=== PATIENT | female | born 1955 | race Caucasian/White ===

== ENCOUNTER 2021-02-08 10:21 | Day surgery (SDC) | payer MEDICARE, OTHER ==
[~2021-02-08] VITALS: Ht 165.1 cm; Wt 79.1 kg
[~2021-02-08 10:21] MED LIST: ANASTROZOLE5 GM PO; CLON.5 PO; LETR2.5 PO; VENLAFAXINE HCL75 MG PO; VITAMIN D33000 UNIT PO
[2021-02-08] MEDS ORDERED: GABA300 (10:52)
[2021-02-08] MEDS ORDERED: Bentyl20 MG (10:53)
--- NOTE | 2021-02-08 11:02 | NUR ---
02/08/21 1102 [address] FIRST ATTEMPT MISSED BY KATARINA IN RH. SECOND ATTEMPT SUCCESSFUL BY RN IN RIGHT WRIST. PT TOW.
== END 2021-02-08 12:20 | disposition home or self-care (01) ==
LOC: ORSCSDS 10:21
PROVIDERS: Internal Medicine Gastroenterology
PROC: 0DJD8ZZ Inspection of Lower Intestinal Tract, Via Natural or Artificial Opening Endoscopic (ICD-10-PCS; principal; 2021-02-08 11:30)
DX: R19.4 Change in bowel habit (principal); R10.31 Right lower quadrant pain; K57.30 Diverticulosis of large intestine without perforation or abscess without bleeding; Z79.899 Other long term (current) drug therapy
CPT/HCPCS: J2405; J2704; J7120

== ENCOUNTER 2022-01-21 00:48 | Emergency (ER) | payer MEDICARE, OTHER ==
[~2022-01-21] VITALS: Ht 165.1 cm; Wt 78.5 kg
[~2022-01-21 00:48] MED LIST changes: +Bentyl20 MG; +GABA300
[2022-01-21 02:42] LABS: BASOPHILS ABSOLUTE AUTO 0.15 K/mm3 (0.00-0.23); BASOPHILS PERCENT AUTO 1 % (0-2); EOSINOPHILS ABSOLUTE AUTO 0.42 K/mm3 (0.00-0.68); EOSINOPHILS PERCENT AUTO 3 % (0-6); Hematocrit 43.4 % (33.0-51.0); Hemoglobin 14.2 g/dL (11.5-16.0); IMMATURE GRAN ABSOLUTE AUTO 0.03 K/mm3 (0.00-0.10); IMMATURE GRAN PERCENT AUTO 0 % (0-1); LYMPHOCYTES PERCENT AUTO 17 % (21-46); MONOCYTES ABSOLUTE AUTO 0.75 K/mm3 (0.16-1.47); MONOCYTES PERCENT AUTO 6 % (4-13); Mean Corpuscular HGB 29.6 pg (26.0-34.0); Mean Corpuscular HGB Conc 32.7 g/dL (31.5-36.5); Mean Corpuscular Volume 90 fL (80-100); Mean Platelet Volume 9.9 fL (9.1-12.4); NEUTROPHILS ABSOLUTE AUTO 9.11 K/mm3 (1.96-9.15); NEUTROPHILS PERCENT AUTO 73 % (41-73); Platelet Count 322 K/mm3 (150-400); RDW Coefficient Variation 12.5 % (11.7-14.2); RDW Standard Deviation 41.4 fL (35.1-46.3); White Blood Cell Count 12.56 K/mm3 (4.00-11.30)
[2022-01-21 02:59] LABS: Albumin, Blood 3.9 g/dL (3.4-5.0); Bilirubin, Total 0.6 mg/dL (0.1-1.0); Calcium, Blood 9.2 mg/dL (8.5-10.1); Creatinine, Blood 0.81 mg/dL (0.40-1.00); Globulin, Blood 3.9 g/dL (2.2-4.0); Potassium, Blood 3.8 mmol/L (3.5-5.5); Total Protein, Blood 7.8 g/dL (6.4-8.2)
[2022-01-21 04:48] LABS: Source, Urine Clean Catch
[2022-01-21 04:55] LABS: Bilirubin, Urine Neg (Neg); Blood, Urine 5+ (Neg); Glucose Qualitative, Urine Neg (Neg); Ketones, Urine Neg (Neg); Leukocyte Esterase, Urine 1+ (Neg); Nitrite, Urine Neg (Neg); Protein, Urine 4+ (Neg); Urobilinogen, Urine NORM (Normal)
[2022-01-21 05:22] LABS: Appearance, Urine Hazy (Clear); Color, Urine Yellow (P-Yellow)
[2022-01-21 05:24] LABS: Bacteria Few /hpf; Red Blood Cells, Urine 50-100 /hpf (0-2); Squamous Epithelial Cells Rare /hpf (Few)
[2022-01-21] MEDS ORDERED: ONDA4ODT MM (05:40)
== END 2022-01-21 06:09 | disposition home or self-care (01) ==
LOC: ER 00:48
PROVIDERS: Emergency Medicine
DX: R10.31 Right lower quadrant pain (principal); R11.2 Nausea with vomiting, unspecified; Z87.19 Personal history of other diseases of the digestive system; Z88.6 Allergy status to analgesic agent; Z88.1 Allergy status to other antibiotic agents; Z88.5 Allergy status to narcotic agent; Z88.0 Allergy status to penicillin; Z88.2 Allergy status to sulfonamides; Z88.8 Allergy status to other drugs, medicaments and biological substances; Z79.899 Other long term (current) drug therapy
CPT/HCPCS: 36415; 80053; 81001; 83690; 84484; 85025; 93005; 93010; J2270; J2405

== ENCOUNTER → 2022-04-05 | Outpatient (CLI) | payer MEDICARE, OTHER ==
[~2022-04-05] MED LIST changes: +ONDA4ODT MM
[2022-04-05 14:28] LABS: Source, Urine Clean Catch
[2022-04-05 15:53] LABS: Appearance, Urine Cloudy (Clear); Bilirubin, Urine Neg (Neg); Blood, Urine 5+ (Neg); Color, Urine Yellow (P-Yellow); Glucose Qualitative, Urine Neg (Neg); Ketones, Urine Neg (Neg); Leukocyte Esterase, Urine 3+ (Neg); Nitrite, Urine Pos (Neg); Protein, Urine 3+ (Neg); Urobilinogen, Urine NORM (Normal)
[2022-04-05 16:05] LABS: Bacteria Many /hpf; Red Blood Cells, Urine TNTC /hpf (0-2); White Blood Cells, Urine TNTC /hpf (0-5)
[2022-04-05 16:06] LABS: Squamous Epithelial Cells Rare /hpf (Few)
== END | disposition home or self-care (01) ==
LOC: LAB 14:26 → LAB SHORT 14:26
PROVIDERS: Urology
DX: N39.0 Urinary tract infection, site not specified (principal)
CPT/HCPCS: 81001; 87077; 87086; 87147; 87186

== ENCOUNTER 2022-04-21 16:08 | Inpatient (IN) | payer MEDICARE, OTHER ==
[~2022-04-21] VITALS: Ht 165.1 cm; Wt 80.6 kg
[2022-04-21 16:37] LABS: BASOPHILS ABSOLUTE AUTO 0.16 K/mm3 (0.00-0.23); BASOPHILS PERCENT AUTO 1 % (0-2); EOSINOPHILS ABSOLUTE AUTO 0.22 K/mm3 (0.00-0.68); EOSINOPHILS PERCENT AUTO 1 % (0-6); Hematocrit 40.6 % (33.0-51.0); Hemoglobin 13.6 g/dL (11.5-16.0); IMMATURE GRAN ABSOLUTE AUTO 0.07 K/mm3 (0.00-0.10); IMMATURE GRAN PERCENT AUTO 1 % (0-1); LYMPHOCYTES ABSOLUTE AUTO 0.85 K/mm3 (0.84-5.20); LYMPHOCYTES PERCENT AUTO 6 % (21-46); MONOCYTES ABSOLUTE AUTO 0.94 K/mm3 (0.16-1.47); MONOCYTES PERCENT AUTO 6 % (4-13); Mean Corpuscular HGB 29.1 pg (26.0-34.0); Mean Corpuscular HGB Conc 33.5 g/dL (31.5-36.5); Mean Corpuscular Volume 87 fL (80-100); Mean Platelet Volume 9.9 fL (9.1-12.4); NEUTROPHILS ABSOLUTE AUTO 13.29 K/mm3 (1.96-9.15); NEUTROPHILS PERCENT AUTO 86 % (41-73); Platelet Count 320 K/mm3 (150-400); RDW Coefficient Variation 13.2 % (11.7-14.2); RDW Standard Deviation 41.7 fL (35.1-46.3); Red Blood Cell Count 4.68 M/mm3 (3.80-5.20); White Blood Cell Count 15.53 K/mm3 (4.00-11.30)
[2022-04-21 17:20] LABS: Source, Urine Clean Catch
[2022-04-21 17:22] LABS: Appearance, Urine Clear (Clear); Bilirubin, Urine Neg (Neg); Blood, Urine 3+ (Neg); Color, Urine Yellow (P-Yellow); Glucose Qualitative, Urine Neg (Neg); Ketones, Urine Neg (Neg); Leukocyte Esterase, Urine 3+ (Neg); Nitrite, Urine Neg (Neg); Protein, Urine 1+ (Neg); Urobilinogen, Urine NORM (Normal)
[2022-04-21 17:22] LABS: Albumin, Blood 3.4 g/dL (3.4-5.0); Albumin/Globulin Ratio 0.8 (0.8-1.8); Bun/Creatinine Ratio 16.2 (12.0-20.0); Calcium, Blood 9.5 mg/dL (8.5-10.1); Creatinine, Blood 0.74 mg/dL (0.40-1.00); Globulin, Blood 4.2 g/dL (2.2-4.0); Total Protein, Blood 7.6 g/dL (6.4-8.2)
[2022-04-21 17:44] LABS: Bacteria Few /hpf; Squamous Epithelial Cells Few /hpf (Few); White Blood Cells, Urine 25-50 /hpf (0-5)
[2022-04-21] MEDS ORDERED: PHENAZOPYRIDINE (19:37)
[2022-04-21] MEDS ORDERED: OXYB5 (19:38)
[2022-04-21] MEDS ORDERED: TAMSULOSIN HCL0.4 M1 PO (19:38)
[2022-04-21] MEDS ORDERED: LETROZOLE2.5 M3 PO (19:38)
--- NOTE | 2022-04-21 23:40 | NUR ---
PT ARRIVES TO ICU 12 VIA BED FROM GARMENT WORKER, SP STEMI WITH STENT TO MID LAD, PER GARMENT WORKER RN, SUZAN CLOTS TO DISTAL BRANCHES OF RCA, AGGRESTAT WAS ADMIN AND SOME EXTRACTION WAS PERFORMED, DR JOHNSON EXPECTS TO HAVE CONTINUED ST ELEVATION. DR JOHNSON ARRIVES TO BEDSIDE AND CONFIRMS. PT RESPONDS TO VERBAL HOWEVER IS UNABLE TO STATE LOCATION CORRECTLY, STATES "LIBRARY" WHEN ASKED. SINUS RHYTHM WITH ST ELEVATION IS NOTED, PRESSURES MAINTAINING, TR BAND REVIEWED WITH GARMENT WORKER STAFF AND DR JOHNSON, WILL VERY SLOWLY START REMOVING AIR FROM TR BAND IN 4 HOURS BUT LEAVE IN PLACE UNTIL AFTER 0700. SPO2 SENSOR PLACED TO RIGHT INDEX FINGER, STRONG PLETH, FINGERS ARE COOL HOWEVER PT TEMP IS NOTED AT 101.6 ON ARRIVAL, WILL MONITOR. BRISK CAP REFILL IS NOTED AND GOOD PLETH TO SPO2. PT DOES ADMIT TO CHEST PAIN, RATES AT 7/10, DOES ADMIT TO FLANK PAIN RATES AT 6/10, FREQUENT PROMPTING IS NOTED TO BE REQUIRED TO GET BOTH PAIN LOCATIONS AND SCORES. WILL MONITOR.
--- NOTE | 2022-04-22 01:39 | NUR ---
STENT CARD STENT CARD PROVIDED TO SPOUSE, IMPORTANCE OF PT CARRYING STENT CARD IN [place] EXPLAINED, UNDERSTANDING VERBALIZED.
[2022-04-22 02:15] LABS: BASOPHILS ABSOLUTE AUTO 0.16 K/mm3 (0.00-0.23); BASOPHILS PERCENT AUTO 1 % (0-2); EOSINOPHILS PERCENT AUTO 0 % (0-6); Hematocrit 38.5 % (33.0-51.0); Hemoglobin 12.8 g/dL (11.5-16.0); IMMATURE GRAN ABSOLUTE AUTO 0.18 K/mm3 (0.00-0.10); IMMATURE GRAN PERCENT AUTO 1 % (0-1); LYMPHOCYTES ABSOLUTE AUTO 0.75 K/mm3 (0.84-5.20); LYMPHOCYTES PERCENT AUTO 3 % (21-46); MONOCYTES ABSOLUTE AUTO 0.72 K/mm3 (0.16-1.47); MONOCYTES PERCENT AUTO 3 % (4-13); Mean Corpuscular HGB 28.9 pg (26.0-34.0); Mean Corpuscular HGB Conc 33.2 g/dL (31.5-36.5); Mean Corpuscular Volume 87 fL (80-100); Mean Platelet Volume 10.2 fL (9.1-12.4); NEUTROPHILS ABSOLUTE AUTO 20.79 K/mm3 (1.96-9.15); NEUTROPHILS PERCENT AUTO 92 % (41-73); Platelet Count 283 K/mm3 (150-400); RDW Coefficient Variation 13.4 % (11.7-14.2); RDW Standard Deviation 42.9 fL (35.1-46.3); Red Blood Cell Count 4.43 M/mm3 (3.80-5.20)
[2022-04-22 02:39] LABS: CHOL/HDL RATIO 5.1; Cholesterol 157 mg/dL (50-200); HDL Cholesterol 31 mg/dL (>39); LDL/HDL RATIO 3.4; Low Density Lipoprotein Chol 105 mg/dL (0-110); Triglycerides 104 mg/dL (30-160); Very Low Density Lipoprot Chol 20 mg/dL (6-32)
[2022-04-22 02:41] LABS: Albumin, Blood 2.9 g/dL (3.4-5.0); Albumin/Globulin Ratio 0.7 (0.8-1.8); Bilirubin, Total 1.4 mg/dL (0.1-1.0); Bun/Creatinine Ratio 19.3 (12.0-20.0); Calcium, Blood 8.2 mg/dL (8.5-10.1); Creatinine, Blood 0.78 mg/dL (0.40-1.00); Globulin, Blood 3.9 g/dL (2.2-4.0); Potassium, Blood 3.4 mmol/L (3.5-5.5); Total Protein, Blood 6.8 g/dL (6.4-8.2)
[2022-04-22 02:49] LABS: Anti-Xa UFH, PHA Monitoring 0.68 IU/mL; International Normalized Ratio 1.19; Prothrombin Time Results 12.4 Sec (9.7-11.5)
--- NOTE | 2022-04-22 03:52 | NUR ---
TR BAND DEFLATION 1 ML AIR REMOVED FROM TR BAND, SITE REMAINS STABLE X 5 MINUTES, 2ND ML OF AIR REMOVED. WILL CONT TO MONITOR AND SLOWLY DEFLATE.
--- NOTE | 2022-04-22 04:07 | NUR ---
TR BAND SITE REMAINS STABLE, 1 ML AIR REMOVED FROM TR BAND, WILL CONT TO MONITOR AND DEFLATE
--- NOTE | 2022-04-22 04:19 | NUR ---
TR BAND SITE REMAINS STABLE, 1 ML AIR REMOVED FROM TR BAND, WILL CONT TO MONITOR.
--- NOTE | 2022-04-22 04:29 | NUR ---
TR BAND SITE REMAINS STABLE, 1 ML AIR REMOVED FROM TR BAND, WILL CONT TO MONITOR.
--- NOTE | 2022-04-22 04:40 | NUR ---
TR BAND SITE REMAINS STABLE, 1 ML AIR REMOVED FROM TR BAND, WILL CONT TO MONITOR.
--- NOTE | 2022-04-22 04:52 | NUR ---
TR BAND SITE REMAINS STABLE, 1 ML AIR REMOVED FROM TR BAND, WILL CONT TO MONITOR.
--- NOTE | 2022-04-22 05:07 | NUR ---
TR BAND SITE REMAINS STABLE, 1 ML AIR REMOVED FROM TR BAND, WILL CONT TO MONITOR.
--- NOTE | 2022-04-22 05:17 | NUR ---
TR BAND SITE REMAINS STABLE, 1 ML AIR REMOVED FROM TR BAND, WILL CONT TO MONITOR.
--- NOTE | 2022-04-22 05:34 | NUR ---
TR BAND SITE REMAINS STABLE, 1 ML AIR REMOVED FROM TR BAND, WILL CONT TO MONITOR.
--- NOTE | 2022-04-22 05:49 | NUR ---
TR BAND SITE REMAINS STABLE, 1 ML AIR REMOVED FROM TR BAND, WILL CONT TO MONITOR
--- NOTE | 2022-04-22 06:07 | NUR ---
TR BAND SITE REMAINS STABLE, 1 ML AIR REMOVED FROM TR BAND, WILL CONT TO MONITOR.
--- NOTE | 2022-04-22 06:19 | NUR ---
TR BAND SITE REMAINS STABLE, 3 ML AIR REMOVED FROM TR BAND OVER 5 MINUTES, TR BAND DEFLATED AT THIS TIME, WILL MONITOR.
--- NOTE | 2022-04-22 06:20 | NUR ---
PT CONTINUES WITH FLANK PAIN AND INTERMITTENT CHEST PAIN, PAIN IS RATED IMPROVED TO CHEST LOW 1/10 AND HIGH 7/10 SINCE ARRIVAL FROM [employer]SULTANT, ST ELEVATION HAS IMPROVED MARKEDLY, PRESSURES ARE NOTED TO HAVE TRENDED DOWN HOWEVER ARE MAINTAINING SBP LOW 100S OF THIS TIME, MAP MAINTAINING. HEART RATE IMPROVED FROM 100-110S TO 80-90S. SATS ARE MID TO UPPER 90S WHEN AWAKE WITH OXYGEN VIA NASAL CANNULA AT 3 L/MIN, LOW 90S WITH SLEEP, SHORT PERIODS OF APNEA HAVE BEEN NOTED AND FAMILY DID REPORT THAT PT SNORES HOWEVER DENIED APNEA AT HOME. PT HAS BEEN ABLE TO VOID IN BEDPAN, URINE TEA COLORED. FLANK PAIN CONTINUES HOWEVER IS ALSO NOTED IMPROVED TO "DOING ALL RIGHT" AT THIS TIME.
--- NOTE | 2022-04-22 15:36 | NUR ---
PT TAKEN TO [facility]AGE AND HOUR INVESTIGATOR FOR NEPHROSTOMY TUBE BY DR. CASTAÑEDA, NO SIGN OF DISTRESS PT LEAVES THE UNIT.
[2022-04-22 16:11] LABS: SARS-Cov-2 (COVID-19) PCR, MMC NEGATIVE (NEGATIVE)
--- NOTE | 2022-04-22 18:04 | NUR ---
SUMMARY PT A/O. C/O CP AT TIMES. THIS AM PT HAD 9/10 SHARP MID STERNAL CP. EKG DONE. DR. VALLEJO INFORMED AND MORPHINE ORDERED. DR. VALLEJO SAYS THIS IS TO BE EXPECTED DUE TO CLOTS. PT IS ON HEPARIN GTT. DR. CASTAÑEDA WAS CONSULTED FOR NEPHROSTOMY TUBE. PT WENT THIS AFTERNOON AND RETURNED AT 1715 WITH NEPHROSTOMY TUBE TO R FLANK. DRAINING SMALL AMT OF SEROSANGUINOUS FLUID. PT HAS BEEN NAUSEATED MOST OF THE DAY. GAVE PHENERGAN AFTER RETURN FROM PROCEDURE. PT TRYING TO EAT SM AMT OF FOOD T/O THE DAY. R RADIAL ACCESS SITE FROM HUMAN SERVICE SPECIALIST PROCEDURE LAST NIGHT IS STABLE. CLEAR OCCLUSIVE DRESSING IN PLACE. NO SIGN OF DISTRESS. FAMILY AT BEDSIDE.
--- NOTE | 2022-04-22 19:15 | NUR ---
ASSUMED CARE OF PT, BEDSIDE REPORT RECEIVED. PT IS RESTING QUIETLY WITH FAMILY AT BEDSIDE, RESPONDS TO VERBAL STIMULI, DOES OPEN EYES AND PROVIDE SHORT ANSWERS TO QUESTIONS AFTER MULTIPLE PROMPTS. DENIES FLANK/BACK PAIN, ADMITS TO "A LITTLE" CHEST PAIN HOWEVER DOES NOT PROVIDE PAIN SCALE, IS ABLE TO STATE THAT SHE IS IN THE HOSPITAL IN [place] AND THAT SHE CAME TO THE EMERGENCY ROOM FOR KIDNEY ISSUES HOWEVER STATES THAT SHE CAN'T ANSWER REGARDING EVENTS AFTER ADMISSION. SHE VERBALIZES UNDERSTANDING WHEN TIMELINE OF ADMIT IS EXPLAINED TO HER. SHE STATES THAT SHE JUST FEELS TIRED AND WOULD LIKE TO SLEEP. SINUS TACH IS NOTED ON MONITOR WITH RATES LOW 110S, ST ELEVATION CONTINUES TO BE IMPROVED, PRESSURES MAINTAINING, SKIN PWD, BRISK CAP REFILL, RIGHT RADIAL ACCESS SITE WITH CLEAR DRESSING IN PLACE IS WNL, NO BLEEDING, BRUISING, OR SWELLING IS NOTED, SITE IS SOFT. LUNGS REMAIN CLEAR WITH DIM BASES BILAT, SATS ARE 100% WITH OXYGEN VIA NASAL CANNULA AT 3 L/MIN, TITRATED DOWN TO 2 L/MIN DURING ASSESSMENT, WILL CONT TO TITRATE DOWN TOLERATED, PT DENIES DYSPNEA/SOB. ACTIVE BOWEL TONES PRESENT, PT DENIES CURRENT NAUSEA, ABD SOFT, NO GRIMACING WITH PALPATION. RIGHT NEPHROSTOMY TUBE IS NOW NOTED, DRESSING TO RIGHT FLANK IS CDI, URINE IN COLLECTION BAG IS RED/ORANGE, WILL CONT TO MONITOR. PLAN OF CARE IS DISCUSSED WITH FAMILY AT BEDSIDE.
--- NOTE | 2022-04-23 05:34 | NUR ---
PT RESTS QUIETLY THROUGHOUT SHIFT, SHE STATES THAT SHE IS FEELING BETTER ALTHOUGH SHE CONTINUES TO REPORT THAT SHE IS SLEEPY AND WOULD LIKE TO REST. SHE HAS DENIED NAUSEA, FLANK PAIN, DYSPNEA/SOB, AND INCREASES IN CHEST PAIN THROUGHOUT NOC. SHE DID REPORT "A LITTLE" CHEST PAIN EARLY IN THE SHIFT HOWEVER SINCE THEN SHE HAS DENIED CHEST PAIN OR PRESSURE. OXYGEN IS AT 1 L/MIN VIA NASAL CANNULA SHE WAS NOTED TO DECREASE SATS TO 88-90% WITH SLEEP, SHE IS ALSO NOTED TO HAVE KIM BOB RESPIRATORY PATTERN WITH SLEEP AND APNEIC PERIODS OF LESS THAN 10 SECONDS DURATION. SHE CONTINUES TO BE ORIENTED TO LOCATION AND CIRCUMSTANCE, IS ABLE TO STATE THAT IT IS MARCH 2022 BUT NOT EXACT DATE THROUGHOUT NOC. LUNGS HAVE REMAINED CLEAR WITH DIM BASES BILAT. CONTINUES IN SINUS RHYTHM, PRESSURES MAINTAINED THROUGHOUT NOC, PULSES REMAIN FULL AND SKIN REMAINS PWD WITH BRISK CAP REFILL. RIGHT NEPHROSTOMY HAS DRAINED 400 ML URINE, COLOR IS NOTED TO HAVE LIGHTENED FROM RED-ORANGE TO ORANGE OF THIS TIME. WILL CONT TO MONITOR AND REPORT OFF TO NEXT SHIFT.
--- NOTE | 2022-04-23 07:00 | NUR ---
ASSUME CARE: I have assumed care of this patient.
--- NOTE | 2022-04-23 07:52 | NUR ---
CHEST PAIN: pt complaining of 7/10 chest pain. she was given one SL nitro, ekg ordered, and Dr Suresh called. RN instructed to give 1mg of morphine.
[2022-04-23 08:16] LABS: BASOPHILS ABSOLUTE AUTO 0.07 K/mm3 (0.00-0.23); BASOPHILS PERCENT AUTO 0 % (0-2); EOSINOPHILS PERCENT AUTO 1 % (0-6); Hematocrit 31.4 % (33.0-51.0); IMMATURE GRAN ABSOLUTE AUTO 0.81 K/mm3 (0.00-0.10); IMMATURE GRAN PERCENT AUTO 4 % (0-1); LYMPHOCYTES PERCENT AUTO 9 % (21-46); MONOCYTES ABSOLUTE AUTO 1.23 K/mm3 (0.16-1.47); MONOCYTES PERCENT AUTO 6 % (4-13); Mean Corpuscular HGB 28.9 pg (26.0-34.0); Mean Corpuscular HGB Conc 31.8 g/dL (31.5-36.5); Mean Corpuscular Volume 91 fL (80-100); Mean Platelet Volume 10.5 fL (9.1-12.4); NEUTROPHILS ABSOLUTE AUTO 17.03 K/mm3 (1.96-9.15); NEUTROPHILS PERCENT AUTO 81 % (41-73); Platelet Count 191 K/mm3 (150-400); RDW Coefficient Variation 13.9 % (11.7-14.2); RDW Standard Deviation 46.7 fL (35.1-46.3); Red Blood Cell Count 3.46 M/mm3 (3.80-5.20); White Blood Cell Count 21.04 K/mm3 (4.00-11.30)
[2022-04-23 08:31] LABS: Albumin, Blood 2.1 g/dL (3.4-5.0); Anion Gap 8 mmol/L (6-16); Blood Urea Nitrogen 24 mg/dL (8-24); CO2, Blood 22 mmol/L (21-32); Calcium, Blood 7.5 mg/dL (8.5-10.1); Chloride, Blood 108 mmol/L (98-108); Glomerular Filtration Rate 62 (60-); Glucose, Blood 117 mg/dL (70-99); Phosphorus, Blood 2.5 mg/dL (2.5-4.9); Sodium, Blood 138 mmol/L (136-145)
--- NOTE | 2022-04-23 09:33 | NUR ---
UPDATE: Dr Haynes called to clarify transfer plan. Continue to plan to transfer for urology management.
--- NOTE | 2022-04-23 09:54 | NUR ---
PROVIDER UPDATE: Pt still complaining of 7/10 chest pain that worsens with inspiration. Discussed with Dr Suresh while she was on unit. Verbal order for for Toradol and Morphine. See new orders.
--- NOTE | 2022-04-23 09:57 | NUR ---
[facility]: update given to [facility] transfer [facility]
--- NOTE | 2022-04-23 10:54 | NUR ---
PROVIDER UPDATE: Dr Suresh called and notified of pt's hypotension. Telephone order for levophed and critical care consult. Dr Mariscal notified. PICC line requested from charge hand.
--- NOTE | 2022-04-23 17:16 | NUR ---
SHIFT SUMMARY/TRANSFER: pt began complaining of 7/10 chest pain that worsened with inspiration this morning. She was given SL NTG and morphine with minimal effect. BP began trending downward. PICC line started in LUE. 1L bolus given and norepi started. Bedside ECHO performed with Dr Marrero at [facility]. Pt was then taken to [facility] today around noon where Impella was placed and pt was transferred to [facility] via helicopter. Report given to LULI Davalos. Right urosotomy tube draining maría colored urine.
== END 2022-04-23 17:15 | disposition short-term general hospital (02) | DRG 215 ==
LOC: ER 16:08 → ICUW 22:10 → ICUE 04-23 13:40
PROVIDERS: Family Medicine; Internal Medicine; Internal Medicine Interventional Cardiology; Physician Assistant; Radiology Diagnostic Radiology; ADMIT Internal Medicine
PROC: 027034Z Dilation of Coronary Artery, One Artery with Drug-eluting Intraluminal Device, Percutaneous Approach (ICD-10-PCS; principal; 2022-04-21)
PROC: 0T9030Z Drainage of Right Kidney with Drainage Device, Percutaneous Approach (ICD-10-PCS; 2022-04-22)
PROC: BT111ZZ Fluoroscopy of Right Kidney using Low Osmolar Contrast (ICD-10-PCS; 2022-04-22)
PROC: BT41ZZZ Ultrasonography of Right Kidney (ICD-10-PCS; 2022-04-22)
PROC: 3E03329 Introduction of Other Anti-infective into Peripheral Vein, Percutaneous Approach (ICD-10-PCS; 2022-04-22)
PROC: 3E033XZ Introduction of Vasopressor into Peripheral Vein, Percutaneous Approach (ICD-10-PCS; 2022-04-22)
PROC: 05HY33Z Insertion of Infusion Device into Upper Vein, Percutaneous Approach (ICD-10-PCS; 2022-04-22)
PROC: 02HA3RZ Insertion of Short-term External Heart Assist System into Heart, Percutaneous Approach (ICD-10-PCS; 2022-04-23)
PROC: 5A0221D Assistance with Cardiac Output using Impeller Pump, Continuous (ICD-10-PCS; 2022-04-23)
PROC: 4A023N8 Measurement of Cardiac Sampling and Pressure, Bilateral, Percutaneous Approach (ICD-10-PCS; 2022-04-23)
PROC: B2111ZZ Fluoroscopy of Multiple Coronary Arteries using Low Osmolar Contrast (ICD-10-PCS; 2022-04-23)
PROC: B41C1ZZ Fluoroscopy of Pelvic Arteries using Low Osmolar Contrast (ICD-10-PCS; 2022-04-23)
DX: I21.19 ST elevation (STEMI) myocardial infarction involving other coronary artery of inferior wall (principal); A41.01 Sepsis due to Methicillin susceptible Staphylococcus aureus; R57.0 Cardiogenic shock; R65.20 Severe sepsis without septic shock; N13.6 Pyonephrosis; E87.2 Acidosis; N12 Tubulo-interstitial nephritis, not specified as acute or chronic; N13.8 Other obstructive and reflux uropathy; Z20.822 Contact with and (suspected) exposure to COVID-19; F32.A Depression, unspecified; F41.9 Anxiety disorder, unspecified; I27.20 Pulmonary hypertension, unspecified; I07.1 Rheumatic tricuspid insufficiency; I50.82 Biventricular heart failure; Z96.0 Presence of urogenital implants; N20.0 Calculus of kidney; N13.9 Obstructive and reflux uropathy, unspecified; K58.9 Irritable bowel syndrome, unspecified; I25.10 Atherosclerotic heart disease of native coronary artery without angina pectoris; E87.6 Hypokalemia; I24.9 Acute ischemic heart disease, unspecified; I48.91 Unspecified atrial fibrillation; Z88.8 Allergy status to other drugs, medicaments and biological substances; Z88.2 Allergy status to sulfonamides; Z88.5 Allergy status to narcotic agent; Z88.1 Allergy status to other antibiotic agents; Z88.0 Allergy status to penicillin; Z87.442 Personal history of urinary calculi; Z90.49 Acquired absence of other specified parts of digestive tract; Z98.890 Other specified postprocedural states; Z95.5 Presence of coronary angioplasty implant and graft; Z79.899 Other long term (current) drug therapy
CPT/HCPCS: 33990; 36415; 36569; 50432; 74176; 76937; 80053; 80061; 80069; 81001; 83036; 83605; 84443; 84484; 85025; 85347; 85520; 85610; 85730; 87040; 87077; 87086; 87147; 87186; 92920; 92921; 93005; 93010; 93308; 93454; 93460; 96374; 96375; 99152; 99153; 99285-25; A9270; C1725; C1729; C1751; C1757; C1760; C1769; C1874; C1887; C1894; C8929; C9600; C9606; G0378; J0461; J0696; J1644; J1940; J1956; J2250; J2270; J2310; J2405; J2550; J3010; J3246; J7030; J7040; J7050; J7060; J7120; Q9957; Q9967; U0004

== ENCOUNTER → 2022-08-06 | Outpatient (CLI) | payer MEDICARE, OTHER ==
[~2022-08-06] MED LIST changes: +LETROZOLE2.5 M3 PO; +OXYB5; +PHENAZOPYRIDINE; +TAMSULOSIN HCL0.4 M1 PO
== END | disposition home or self-care (01) ==
LOC: LAB SHORT 10:00 → LAB 10:00 → LAB FUT 04-17 09:50 → EDSTATUS 04-17 09:50
DX: N20.0 Calculus of kidney (principal)
CPT/HCPCS: 81050

== ENCOUNTER → 2023-12-04 | Outpatient (CLI) | payer MEDICARE, OTHER ==
[2023-12-10 16:16] LABS: CALCIUM, URINE - PER 24H 30 mg/d (100-250); CHLORIDE, URINE - PER 24H 42 mmol/d (140-250); CHLORIDE, URINE - PER VOLUME 28 mmol/L; CITRIC ACID, URINE - PER 24H 240 mg/d (320-1240); CITRIC ACID,URINE - PER VOLUME 160 mg/L; CREATININE, URINE - PER 24H 885 mg/d (500-1400); CREATININE, URINE - PER VOLUME 59 mg/dL; HOURS COLLECTED 24 hr; MAGNESIUM, URINE - PER VOLUME 2.4 mg/dL; MAGNESIUM, URINE PER 24H 36 mg/d (12-199); OXALATE, URINE - PER 24H 18 mg/d (13-40); OXALATE, URINE - PER VOLUME 12 mg/L; PH, URINE 6.23 (5.00-7.50); PHOSPHORUS, URINE - PER 24H 480 mg/d (400-1300); PHOSPHORUS, URINE - PER VOLUME 32 mg/dL; POTASSIUM, URINE - PER 24H 57 mmol/d (25-125); POTASSIUM, URINE - PER VOLUME 38 mmol/L; SODIUM, URINE - PER 24H 45 mmol/d (51-286); SODIUM, URINE - PER VOLUME 30 mmol/L; SULFATE, URINE - PER 24H 9 mmol/d (6-30); SULFATE, URINE - PER VOLUME 6 mmol/L; TOTAL VOLUME 1500 mL; URIC ACID, URINE - PER 24H 218 mg/d (250-750); URIC ACID, URINE - PER VOLUME 14.5 mg/dL; URINE SUPERSATURATION INTERP Normal; URINE SUPERSATURATION, CAHPO4 0.31; URINE SUPERSATURATION, CAOX 1.04; URINE SUPERSATURATION, UA CALC 0.14
== END ==
LOC: LAB SHORT 10:32 → LAB 10:32 → LAB FUT 06-18 07:40
PROVIDERS: Urology
DX: N20.0 Calculus of kidney (principal)
CPT/HCPCS: 81003; 82131; 82140; 82340; 82436; 82507; 82570; 83735; 83935; 83945; 84105; 84133; 84300; 84392; 84560